=== PATIENT | male | born 1980 | race Caucasian/White ===

== ENCOUNTER 2024-01-25 08:50 | Emergency (ER) | payer MEDICAID ==
[~2024-01-25] VITALS: Ht 172.7 cm; Wt 78.0 kg
[2024-01-25 08:59] VITALS: O2SAT 100
[2024-01-25 09:22] LABS: BASOPHILS % 0.6 % (0.0-2.0); EOSINOPHILS % 0.3 % (0.0-5.0); HEMATOCRIT. 47.2 % (42.0-52.0); LYMPHOCYTES % 15.6 % (20.0-50.0); MEAN CORPUSCULAR HEMOGLOBIN 30.2 pg (28.0-32.0); MEAN CORPUSCULAR HGB CONC 33.9 g/dL (31.0-37.0); MEAN CORPUSCULAR VOLUME 89.2 fL (80.0-94.0); MEAN PLATELET VOLUME 7.6 fl (7.4-10.4); NEUTROPHILS % 79.5 % (40.0-76.0); PLATELET 269 x1000/uL (130-400); RED BLOOD CELL COUNT 5.29 mill/uL (4.7-6.1); RED CELL DISTRIBUTION WIDTH 13.2 % (11.6-14.6); WHITE BLOOD COUNT 6.6 x1000/uL (4.5-11.0)
[2024-01-25 09:27] LABS: CHLORIDE 107 mEq/L (98-107); POTASSIUM 3.8 mEq/L (3.5-5.1); SODIUM 135 mEq/L (136-145)
[2024-01-25 09:28] LABS: CARBON DIOXIDE 23 mEq/L (21-32)
[2024-01-25 09:29] LABS: CALCIUM 9.7 mg/dL (8.7-10.4)
[2024-01-25 09:33] LABS: CREATININE 1.1 mg/dL (0.6-1.3); GLUCOSE 114 mg/dL (70-105); UREA NITROGEN BLOOD 8 mg/dL (9-23)
[2024-01-25] MEDS: HYDROXYZINE 25MG TABLET PO NR (10:15)
[2024-01-25 10:21] VITALS: BP 115/74; PULSE 72; RESP 16; TEMP 98.3
== END 2024-01-25 10:22 | disposition home or self-care (01) ==
LOC: ER 08:50
DX: F41.9 Anxiety disorder, unspecified (principal); F19.10 Other psychoactive substance abuse, uncomplicated; F10.20 Alcohol dependence, uncomplicated; Z98.890 Other specified postprocedural states; Z88.0 Allergy status to penicillin; Y90.9 Presence of alcohol in blood, level not specified
CPT/HCPCS: 36415; 80048; 80320; 85025; 99283; G0480